=== PATIENT | female | born 1980 | race African-American/Black ===

== ENCOUNTER 2019-10-27 21:00 | Emergency (ER) | payer BC, OTHER ==
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
[2019-10-27] MEDS ORDERED: HYDROCODONE/ACETAMINOPHEN 5-325 MG TABLET PO ONE (23:41)
[2019-10-27] MEDS ORDERED: HYDROCODONE/ACETAMINOPHEN 5-325 MG (6 TAB/ER DISP) PO PRN (23:41)
[2019-10-28 00:24] VITALS: BP 122/81
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
== END 2019-10-28 00:20 | disposition home or self-care (01) ==
LOC: ER 21:00
DX: S13.4XXA Sprain of ligaments of cervical spine, initial encounter (principal); S46.912A Strain of unspecified muscle, fascia and tendon at shoulder and upper arm level, left arm, initial encounter; S80.02XA Contusion of left knee, initial encounter; R51 Headache; V86.55XA Driver of 3- or 4- wheeled all-terrain vehicle (ATV) injured in nontraffic accident, initial encounter
CPT/HCPCS: 70450; 71046; 72125; 99284